=== PATIENT | female | born 1975 | race American Indian/Alaskan Native ===

== ENCOUNTER 2017-11-22 15:15 | Emergency (ER) | payer MEDICAID, OTHER ==
[2017-11-22] MEDS ORDERED: NORCO 5/325 PO ONE (20:05)
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
[2017-11-22 21:03] VITALS: BP 136/76
== END 2017-11-22 21:01 | disposition home or self-care (01) ==
LOC: ED 15:15
DX: M15.9 Polyosteoarthritis, unspecified (principal); M54.5 Low back pain; I10 Essential (primary) hypertension; Z91.010 Allergy to peanuts; Z91.013 Allergy to seafood; V49.19XA Passenger injured in collision with other motor vehicles in nontraffic accident, initial encounter; Y93.89 Activity, other specified; Y99.8 Other external cause status; Y92.488 Other paved roadways as the place of occurrence of the external cause
CPT/HCPCS: 72100